=== PATIENT | male | born 1965 | race Caucasian/White ===

== ENCOUNTER → 2024-08-31 15:46 | Outpatient (REF) | payer OTHER, SELFPAY | LOC: RAD 15:46 | PROVIDERS: ATTENDING PHYSICIAN Physician Assistant | DX: R91.1 Solitary pulmonary nodule (principal) | CPT/HCPCS: 71250 ==

== ENCOUNTER 2024-09-11 06:25 | Day surgery (SDC) | payer OTHER, SELFPAY | END 2024-09-11 08:24 | disposition home or self-care (01) | LOC: GI 06:25 | PROVIDERS: ATTENDING PHYSICIAN Internal Medicine Gastroenterology | DX: Z12.11 Encounter for screening for malignant neoplasm of colon (principal); K57.30 Diverticulosis of large intestine without perforation or abscess without bleeding; K64.8 Other hemorrhoids; Z86.0100 Personal history of colon polyps, unspecified | CPT/HCPCS: G0105 ==

== ENCOUNTER 2025-03-18 15:20 | Outpatient (RCR) | payer OTHER, SELFPAY | END 2025-03-18 23:59 | disposition home or self-care (01) | LOC: ROT 15:20 | PROVIDERS: ATTENDING PHYSICIAN Orthopaedic Surgery Hand Surgery; FAMILY PHYSICIAN Physician Assistant | DX: M79.642 Pain in left hand (principal); Z73.6 Limitation of activities due to disability; S62.603D Fracture of unspecified phalanx of left middle finger, subsequent encounter for fracture with routine healing; S62.605D Fracture of unspecified phalanx of left ring finger, subsequent encounter for fracture with routine healing; V87 Traffic accident of specified type but victim's mode of transport unknown | CPT/HCPCS: 97010; 97022; 97110; 97140; 97166; 97535; 97760 ==

== ENCOUNTER → 2025-04-02 08:38 | Outpatient (REF) | payer OTHER, SELFPAY | LOC: HWRAD 08:38 | PROVIDERS: ATTENDING PHYSICIAN Psychiatry & Neurology Neurology; FAMILY PHYSICIAN Physician Assistant | DX: S06.5XAA Traumatic subdural hemorrhage with loss of consciousness status unknown, initial encounter (principal) | CPT/HCPCS: 70450 ==

== ENCOUNTER 2025-04-17 16:29 | Outpatient (RCR) | payer OTHER, SELFPAY | END 2025-04-17 23:59 | disposition home or self-care (01) | LOC: ROT 16:29 | PROVIDERS: ATTENDING PHYSICIAN Orthopaedic Surgery Hand Surgery; FAMILY PHYSICIAN Physician Assistant | DX: M79.642 Pain in left hand (principal); Z73.6 Limitation of activities due to disability | CPT/HCPCS: 97022; 97110; 97140; 97535; 97760 ==

== ENCOUNTER 2025-04-29 15:21 | Outpatient (RCR) | payer OTHER, SELFPAY | END 2025-05-02 11:03 | disposition home or self-care (01) | LOC: ROT 15:21 | PROVIDERS: ATTENDING PHYSICIAN Orthopaedic Surgery Hand Surgery; FAMILY PHYSICIAN Physician Assistant | DX: M79.642 Pain in left hand (principal); Z73.6 Limitation of activities due to disability | CPT/HCPCS: 97022; 97110; 97140 ==

== ENCOUNTER → 2025-08-26 08:57 | Outpatient (REF) | payer OTHER, SELFPAY | LOC: REG 08:57 | PROVIDERS: ATTENDING PHYSICIAN Physician Assistant | DX: R93.89 Abnormal findings on diagnostic imaging of other specified body structures (principal) | CPT/HCPCS: 71046 ==